=== PATIENT | male | born 1990 | race Caucasian/White ===

== ENCOUNTER 2017-06-05 10:58 | Emergency (ER) | payer SELFPAY ==
[~2017-06-05 10:58] MED LIST: BACT800T5 PO; CEPH500C3 PO
[2017-06-05 11:00] VITALS: BP 115/60; PULSE 90; RESP 22; TEMP 98.3; O2SAT 98
== END 2017-06-05 11:07 | disposition left against medical advice (07) ==
LOC: NED 10:58
DX: R06.09 Other forms of dyspnea (principal); Z53.21 Procedure and treatment not carried out due to patient leaving prior to being seen by health care provider
CPT/HCPCS: 99281